=== PATIENT | female | born 1995 | race African-American/Black ===

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

== ENCOUNTER 2017-06-03 15:09 | Emergency (ER) | payer SELFPAY ==
[~2017-06-03] VITALS: Ht 157.5 cm; Wt 59.0 kg
[~2017-06-03 15:09] MED LIST changes: +ERYTHROMYCIN1 G1 OP; +ZANTAC150 MG ORAL
[2017-06-03] MEDS ORDERED: TYLENOL EXTRA500 MG ORAL (15:57)
[2017-06-03] MEDS ORDERED: Tetanus/Diptheria/Pertussis Vaccine 0.5ml Syr IM ONE (16:00)
[2017-06-03 16:13] VITALS: BP 118/71
[2017-06-03 16:14] VITALS: BP 118/71
--- NOTE | 2017-06-03 17:17 | Emergency Room Report ---
History of Present Illness General Chief Complaint: Head Injury Source: Patient Present Illness HPI 21-year-old female presents ED for evaluation. Patient states that today she was sweeping the floor and she accidentally hit her head against a chair. Happened approximately 1 hour prior to arrival. Denies LOC. Denies any amnesia regarding the events. Denies nausea or vomiting. Patient states pain is dull, 5 out of 10, nonradiating. Noted some bleeding initially which has resolved. Tetanus unknown. No other aggravating relieving factors. Denies any other associated symptoms Allergies: Coded Allergies: No Known Allergies (Unverified , 07/03/16) Patient History Past Medical History: none Past Surgical History: none Pertinent Family History: none Social History: Denies: smoking, alcohol use, drug use Last Menstrual Period: 06/02/17 Now: No : 0 Para: 0 Immunizations: UTD Reviewed Nursing Documentation: PMH: Agreed; PSxH: Agreed Nursing Documentation-PMH Past Medical History: No History, Except For Review of Systems All Other Systems: negative except mentioned in HPI Physical Exam Vital Signs Date Time Temp Pulse Resp B/P (MAP) Pulse Ox O2 Delivery O2 Flow Rate FiO2 06/03/17 15:26 98.3 60 18 107/66 100 Room Air 98.2 Sp02 EP Interpretation: reviewed, normal General Appearance: no apparent distress, alert, GCS 15, non-toxic Head: normocephalic, other - small abrasion to R upper forehead. small hematoma noted. no ecchymoses/bruising. non tender Eyes: bilateral eye normal inspection, bilateral eye PERRL ENT: hearing grossly normal, normal pharynx, no angioedema, normal voice, TMs + canals normal, other - no hemotypanum, no valverde sign Neck: full range of motion, no bony tend, supple/symm/no masses Respiratory: normal inspection Cardiovascular #1: normal inspection Gastrointestinal: normal inspection Rectal: deferred Genitourinary: no CVA tenderness Musculoskeletal: normal inspection Neurologic: alert, oriented x3, responsive, motor strength/tone normal, sensory intact, speech normal Psychiatric: normal inspection Skin: normal inspection Lymphatic: normal inspection Medical Decision Making Diagnostic Impression: Primary Impression: Acute head injury Qualified Codes: S09.90XA - Unspecified injury of head, initial encounter ER Course Hospital Course 21-year-old female presents ED complaining of headache s/p hitting head on chair Differential diagnoses include: hematoma, skull fx, TBI Clinical course Patient placed on stretcher. After initial history, my physical exam reveals a female in no acute distress. There is a superficial abrasion to the forehead. Small hematoma overlying. No crepitus. No bruising or ecchymosis. No hemotympanum. No Valverde sign. No focal neurological deficits. Given mechanism of injury my suspicion for acute brain injury is low. Do not believe CT imaging is required. Patient agrees. Given tetanus and Tylenol in ED Diagnosis - acute head injury Stable and discharged to home with Rx Tylenol. Followup with PMD. Return to ED if symptoms recur or worsen Last Vital Signs Date Time Temp Pulse Resp B/P (MAP) Pulse Ox O2 Delivery O2 Flow Rate FiO2 06/03/17 16:14 98.1 75 17 118/71 100 Room Air 98.1 Status: improved Disposition: HOME, SELF-CARE Condition: Stable Scripts Acetaminophen* (TYLENOL EXTRA STRENGTH*) 500 Mg Tablet 500 MG ORAL Q8H PRN for Prn Headache/Temp > 101, #30 TAB 0 Refills Prov: Yung Santizo MD 06/03/17 Referrals: NOT CHOSEN IPA/,REFERRING (PCP) Patient Instructions: Head Injury, Adult, [id number] Yung Santizo MD Jun 03, 2017 17:17
== END 2017-06-03 16:14 | disposition home or self-care (01) ==
LOC: EMR 15:40
DX: S00.81XA Abrasion of other part of head, initial encounter (principal); S00.83XA Contusion of other part of head, initial encounter; W22.03XA Walked into furniture, initial encounter; Y92.89 Other specified places as the place of occurrence of the external cause; Z23 Encounter for immunization
CPT/HCPCS: 90471; 90715; 99283

== ENCOUNTER 2017-12-14 15:36 | Emergency (ER) | payer MEDICAID ==
[~2017-12-14] VITALS: Ht 157.5 cm; Wt 59.0 kg
[~2017-12-14 15:36] MED LIST changes: +TYLENOL EXTRA500 MG ORAL
[2017-12-14] MEDS ORDERED: Ketorolac 30mg Inj IM ONE (16:15)
[2017-12-14] MEDS ORDERED: Methocarbamol 500mg tab ORAL ONE (16:15)
[2017-12-14] MEDS ORDERED: Lidocaine 2% Visc 15ml soln ORAL ONE (16:15)
[2017-12-14] MEDS ORDERED: ROBAXIN500 MG PO (16:24)
[2017-12-14] MEDS ORDERED: LIDOCAINE700 M1 TP (16:24)
[2017-12-14] MEDS ORDERED: CLARITIN10 M1 ORAL (16:24)
[2017-12-14] MEDS ORDERED: TYLENOL EXTRA500 MG ORAL (16:24)
[2017-12-14] MEDS ORDERED: PROMETHAZI6.25 MG/1 ORAL (16:24)
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
[2017-12-14] MEDS ORDERED: Acetaminophen 500mg (ES) tab ORAL ONE (16:45)
[2017-12-14 16:53] VITALS: BP 112/72
== END 2017-12-14 16:54 | disposition home or self-care (01) ==
LOC: EMR 16:07
DX: J06.9 Acute upper respiratory infection, unspecified (principal); S39.012A Strain of muscle, fascia and tendon of lower back, initial encounter; S16.1XXA Strain of muscle, fascia and tendon at neck level, initial encounter; V43.52XA Car driver injured in collision with other type car in traffic accident, initial encounter; Y92.410 Unspecified street and highway as the place of occurrence of the external cause
CPT/HCPCS: 99284

== ENCOUNTER 2017-12-21 03:30 | Emergency (ER) | payer MEDICAID ==
[~2017-12-21] VITALS: Ht 157.5 cm; Wt 59.4 kg
[~2017-12-21 03:30] MED LIST changes: +CLARITIN10 M1 ORAL; +LIDOCAINE700 M1 TP; +PROMETHAZI6.25 MG/1 ORAL; +ROBAXIN500 MG PO
[2017-12-21 03:35] VITALS: BP 106/65
[2017-12-21] MEDS ORDERED: CLARITIN-D 241 EACH PO (03:43)
[2017-12-21 03:46] VITALS: BP 106/65
--- NOTE | 2017-12-21 04:31 | Emergency Room Report ---
History of Present Illness General Chief Complaint: Medical Clearance Source: Patient Present Illness HPI 22-year-old female presents ED for evaluation. States that she woke up yesterday with swollen eyes. States her eyes were itchy. Watery. No photophobia. No discharge. States that she apply warm compresses throughout the day states that symptoms resolved. States she is here for evaluation. Denies any symptoms at this time. States she has history of allergies. No other aggravating relieving factors. Denies any other associated symptoms Allergies: Coded Allergies: No Known Allergies (Unverified , 07/03/16) Patient History Past Medical History: none Past Surgical History: none Pertinent Family History: none Social History: Denies: smoking, alcohol use, drug use Last Menstrual Period: now Now: No Immunizations: UTD Reviewed Nursing Documentation: PMH: Agreed; PSxH: Agreed Nursing Documentation-PMH Past Medical History: No Stated History Review of Systems All Other Systems: negative except mentioned in HPI Physical Exam Vital Signs Date Time Temp Pulse Resp B/P (MAP) Pulse Ox O2 Delivery O2 Flow Rate FiO2 12/21/17 03:31 98.2 72 16 106/65 97 Room Air 98.2 Sp02 EP Interpretation: reviewed, normal General Appearance: no apparent distress, alert, GCS 15, non-toxic Head: normocephalic Eyes: bilateral eye normal inspection, bilateral eye PERRL, bilateral eye EOMI , bilateral eye visual acuity ENT: hearing grossly normal, normal pharynx, no angioedema, normal voice Neck: normal inspection Respiratory: normal inspection Cardiovascular #1: normal inspection Gastrointestinal: normal inspection Rectal: deferred Genitourinary: no CVA tenderness Musculoskeletal: normal inspection Neurologic: alert, oriented x3, responsive, motor strength/tone normal, sensory intact, speech normal Psychiatric: normal inspection Skin: normal inspection Lymphatic: normal inspection Medical Decision Making Diagnostic Impression: Primary Impression: Allergic conjunctivitis and rhinitis Qualified Codes: H10.13 - Acute atopic conjunctivitis, bilateral; J30.9 - Allergic rhinitis, unspecified ER Course Hospital Course 22-year-old F presents to ED with bilateral eye swelling Differential diagnoses include: conjunctivitis, traumatic iritis, foreign body, corneal abrasion Clinical course Patient placed on stretcher. After initial history, physical exam revealed a female no acute distress. On exam there is no evidence of lip swelling or scleral injection. No evidence of discharge. No photophobia. Visual acuity unchanged. Patient showed me picture from yesterday. Patient has swelling of upper or lower eyelids bilaterally with some scleral injection. Likely allergic conjunctivitis with rhinitis. Discussed findings with patient. Patient would likely benefit from Claritin or other antihistamine. Close follow-up with PMD Diagnosis - allergic conjunctivitis and rhinitis Stable and discharged to home with prescription for claritin. Followup with PMD /Optho. Return to ED if symptoms recur or worsen Last Vital Signs Date Time Temp Pulse Resp B/P (MAP) Pulse Ox O2 Delivery O2 Flow Rate FiO2 12/21/17 03:46 98.2 72 16 106/65 97 Room Air 98.2 Status: improved Disposition: HOME, SELF-CARE Condition: Stable Scripts Loratadine/Pseudoephedrine (CLARITIN-D 24 HOUR TABLET) 1 Each Tab.er.24h 1 TAB PO DAILY for 30 Days, TAB Prov: Yung Santizo MD 12/21/17 Referrals: NOT CHOSEN [facility]/,REFERRING (PCP) Departure Forms: Return to School Return to School On: Dec 21, 2017 School Release Restrictions: None Patient Instructions: Allergic Conjunctivitis, [id number] Yung Santizo MD Dec 21, 2017 04:31
== END 2017-12-21 03:45 | disposition home or self-care (01) ==
LOC: EMR 03:40
DX: T78.40XA Allergy, unspecified, initial encounter (principal); X58.XXXA Exposure to other specified factors, initial encounter; R60.0 Localized edema
CPT/HCPCS: 99282

== ENCOUNTER 2019-02-13 17:14 | Emergency (ER) | payer MEDICAID ==
[~2019-02-13] VITALS: Ht 157.5 cm; Wt 59.0 kg
[~2019-02-13 17:14] MED LIST changes: +CLARITIN-D 241 EACH PO
[2019-02-13] MEDS ORDERED: NKM (17:22)
--- NOTE | 2019-02-13 17:43 | NUR ---
ED Nurse Note: Patient walked into ED from home c/o coughing runny nose, sore throat for 1 week. Patient denies n/v/d.
[2019-02-13 17:44] VITALS: BP 113/63
--- NOTE | 2019-02-13 18:06 | Emergency Room Report ---
History of Present Illness General Chief Complaint: Upper Respiratory Illness Source: Patient Present Illness HPI 23-year-old female with no significant past medical history here complaining of 1 week of 10 out of 10 sore throat, congestion, and mild cough. Patient reports that a week ago she started having intermittent fever and chills. Has not taken medication for symptom relief. Denies abdominal pain, nausea or vomiting. Is up-to-date with immunization. Denies sick contact or recent travel. Allergies: Coded Allergies: No Known Allergies (Unverified , 07/03/16) Patient History Past Medical History: see triage record Past Surgical History: unable to obtain Pertinent Family History: none Last Menstrual Period: 02/10/19 Now: No Immunizations: UTD Reviewed Nursing Documentation: PMH: Agreed; PSxH: Agreed Nursing Documentation-PMH Past Medical History: No History, Except For Review of Systems All Other Systems: negative except mentioned in HPI Physical Exam Vital Signs Date Time Temp Pulse Resp B/P (MAP) Pulse Ox O2 Delivery O2 Flow Rate FiO2 02/13/19 17:17 98.1 98 17 113/63 (80) 100 Room Air Sp02 EP Interpretation: reviewed, normal General Appearance: no apparent distress, alert, GCS 15, non-toxic Head: normocephalic, atraumatic Eyes: bilateral eye normal inspection, bilateral eye PERRL ENT: nasal congestion, tonsillar swelling, pharyngeal erythema, tonsillar exudate Neck: full range of motion, supple, thyroid normal, no meningismus Respiratory: chest non-tender, lungs clear, normal breath sounds, no rhonchi, no wheezing, speaking full sentences Cardiovascular #1: regular rate, rhythm, no edema, no murmur Gastrointestinal: normal bowel sounds, non tender, soft, non-distended, no guarding, no rebound Genitourinary: no CVA tenderness Musculoskeletal: back normal, normal range of motion, gait/station normal, non- tender Neurologic: alert, motor strength/tone normal, oriented x3, sensory intact, responsive, speech normal Psychiatric: judgement/insight normal, memory normal, mood/affect normal, no suicidal/homicidal ideation Skin: no rash Lymphatic: no adenopathy Medical Decision Making PA Attestation All diagnoses and treatment plans were reviewed and discussed with my supervising physician Dr. Servin Diagnostic Impression: Primary Impression: Strep pharyngitis ER Course 23-year-old female with no significant past medical history here complaining of 1 week of 10 out of 10 sore throat, congestion, and mild cough. Patient reports that a week ago she started having intermittent fever and chills. Has not taken medication for symptom relief. Denies abdominal pain, nausea or vomiting. Is up-to-date with immunization. Denies sick contact or recent travel. Ddx considered but are not limited to: strep pharyngitis, URI, tonsillitis, peritonsillar abscess, influneza Vital signs: are WNL, pt. is afebrile H&PE are most consistent with: Strep pharyngitis ORDERS: Phenergan, Flonase, Augmentin ED INTERVENTIONS: None required at this time. DISCHARGE: At this time pt. is stable for d/c to home. Will provide printed patient care instructions, and any necessary prescriptions. Care plan and follow up instructions have been discussed with the patient prior to discharge. Follow-up with primary care provider, worsening symptoms return to emergency room Last Vital Signs Date Time Temp Pulse Resp B/P (MAP) Pulse Ox O2 Delivery O2 Flow Rate FiO2 02/13/19 17:44 98.1 98 17 113/63 100 Room Air Disposition: HOME, SELF-CARE Condition: Stable Scripts Lidocaine HCl (Lidocaine HCl Viscous) 100 Ml Solution 10 ML MM DAILY, #100 ML Prov: Checo Silva 02/13/19 Promethazine Hcl (PROMETHAZINE HCL*) 6.25 Mg/5 Ml Syrup 5 ML ORAL Q6H, #120 ML 0 Refills Prov: Checo Silva 02/13/19 Amoxicillin/Potassium Clav 875-125* (AUGMENTIN 875-125 TABLET*) 1 Each Tablet 1 TAB ORAL TWICE A DAY for 10 Days, #20 TAB Prov: Checo Silva 02/13/19 Patient Instructions: Strep Throat, [id number] Additional Instructions: Medication as directed, follow-up with your primary care provider, if worsening symptoms return to the emergency room Checo Silva Feb 13, 2019 18:06
[2019-02-13] MEDS ORDERED: MAGIC MOUTH WAS60 ML MM (18:09)
[2019-02-13] MEDS ORDERED: PROMETHAZI6.25 MG/1 ORAL (18:09)
[2019-02-13] MEDS ORDERED: AUGMENTIN 875-1 EAC1 ORAL (18:09)
--- NOTE | 2019-02-13 18:26 | NUR ---
ER DISCHARGE NOTE: Patient is cleared to be discharged per ERMD, pt is aox4, on room air, with stable vital signs. pt was given dc and prescription instructions, pt was able to verbalize understanding, pt id band removed without complications. pt is able to ambulate with steady gait. pt took all belongings.
[2019-02-13 18:27] VITALS: BP 115/65
== END 2019-02-13 18:26 | disposition home or self-care (01) ==
LOC: EMR 18:20
DX: J02.0 Streptococcal pharyngitis (principal)
CPT/HCPCS: 99282